=== PATIENT | male | born 1955 | race Hispanic/Latino ===

== ENCOUNTER 2020-10-15 21:09 | Observation (INO) | payer BC ==
[2020-10-15] MEDS ORDERED: Aspirin Chewable 81 MG TAB ONE (22:25)
[2020-10-16] MEDS ORDERED: Senokot S 8.6-50 MG TAB PO PRN (01:55)
[2020-10-16] MEDS ORDERED: Acetaminophen 325 MG TAB PO PRN (01:55)
[2020-10-16] MEDS ORDERED: Sodium Chloride 0.9% 1,000 ML IV SCH (02:00)
[2020-10-16 02:49] VITALS: BMI 28.1
[2020-10-16 04:59] LABS: #Basophils 0.1 thou/uL (0.0-0.2); #Eosinphils 0.2 thou/uL (0.0-0.7); #Lymphocytes 1.9 thou/uL (1.20-3.40); #Monocytes 0.6 thou/uL (0.11-0.59); #Neutrophils 2.7 thou/uL (1.40-6.50); %Monocytes 10.2 % (0.0-10.0); %Neutrophils 49.8 % (42.0-75.0); Hemoglobin 12.7 g/dL (14.0-18.0); Mean Corpuscular HGB CONC 33.4 g/dL (32.0-36.0); Mean Corpuscular Hemoglobin 29.4 pg (27.0-31.0); Mean Corpuscular Volume 88.1 fL (78.0-98.0); Platelet Count 159 thou/uL (130-400); RBC Distribution Width 12.1 % (11.5-14.5); Red Blood Cell (RBC) Count 4.33 mill/uL (4.70-6.10); White Blood Cell (WBC) Count 5.4 thou/uL (4.8-10.8)
[2020-10-16 05:12] LABS: #Eosinphils 0.1 thou/uL (0.0-0.7); #Lymphocytes 2.2 thou/uL (1.20-3.40); #Monocytes 0.7 thou/uL (0.11-0.59); #Neutrophils 3.1 thou/uL (1.40-6.50); %Basophils 0.2 % (0.0-1.0); %Eosinophils 1.8 % (0.0-10.0); %Lymphocytes 36.1 % (21.0-51.0); %Monocytes 11.1 % (0.0-10.0); %Neutrophils 50.8 % (42.0-75.0); Hemoglobin 13.6 g/dL (14.0-18.0); Mean Corpuscular HGB CONC 34.6 g/dL (32.0-36.0); Mean Corpuscular Hemoglobin 30.4 pg (27.0-31.0); Mean Corpuscular Volume 87.7 fL (78.0-98.0); Mean Platelet Volume 8.1 fL (7.4-10.4); Platelet Count 174 thou/uL (130-400); RBC Distribution Width 12.3 % (11.5-14.5); Red Blood Cell (RBC) Count 4.47 mill/uL (4.70-6.10)
[2020-10-16 05:25] LABS: Anion Gap 13 mmol/L (10-20); BUN (Urea Nitrogen) 10 mg/dL (8.4-25.7); Calc. Creatinine Clearance 95 mL/min (70-130); Calcium 8.6 mg/dL (7.8-10.44); Carbon Dioxide 23 mmol/L (23-31); Chloride 106 mmol/L (98-107); Glucose 100 mg/dL (80-115); Magnesium 2.1 mg/dL (1.6-2.6); Potassium 3.8 mmol/L (3.5-5.1); Sodium 138 mmol/L (136-145)
[2020-10-16 08:07] LABS: ALT (SGPT) 78 U/L (8-55); AST (SGOT) 53 U/L (5-34); Albumin 3.9 g/dL (3.4-4.8); Alkaline Phosphatase 67 U/L (40-110); Anion Gap 15 mmol/L (10-20); BUN (Urea Nitrogen) 12 mg/dL (8.4-25.7); Bilirubin, Total 0.4 mg/dL (0.2-1.2); Calc. Creatinine Clearance 91 mL/min (70-130); Calcium 8.7 mg/dL (7.8-10.44); Carbon Dioxide 19 mmol/L (23-31); Chloride 106 mmol/L (98-107); Globulin 3.1 g/dL (2.4-3.5); Glucose 116 mg/dL (80-115); Potassium 3.4 mmol/L (3.5-5.1); Sodium 137 mmol/L (136-145)
[2020-10-16 08:41] LABS: SARS-CoV-2 PCR by NAA Not Detected (NotDetected)
[2020-10-16] MEDS: Famotidine 20 MG TAB PO SCH ×2 (08:44→21:18)
[2020-10-16] MEDS: Amlodipine 10 MG TAB PO SCH (08:44)
[2020-10-16] MEDS: Rosuvastatin 10 MG TAB PO SCH (08:44)
[2020-10-16] MEDS: Potassium Chloride 20 MEQ TAB PO SCH (08:45)
[2020-10-16] MEDS: Losartan 25 MG TAB PO SCH (08:45)
[2020-10-16] MEDS: Enoxaparin Sodium 40 MG/0.4 ML SYRINGE SC SCH (08:53)
[2020-10-16 18:45] LABS: Troponin I Less than 0.010 ng/mL (< 0.028)
[2020-10-16 21:58] LABS: Troponin I Less than 0.010 ng/mL (< 0.028)
[2020-10-17] MEDS: Enoxaparin Sodium 40 MG/0.4 ML SYRINGE SC SCH (09:33)
[2020-10-17] MEDS: Potassium Chloride 20 MEQ TAB PO SCH (09:34)
[2020-10-17] MEDS: Losartan 25 MG TAB PO SCH (09:34)
[2020-10-17] MEDS: Rosuvastatin 10 MG TAB PO SCH (09:34)
[2020-10-17] MEDS: Famotidine 20 MG TAB PO SCH (09:34)
[2020-10-17] MEDS: Amlodipine 10 MG TAB PO SCH (09:35)
[2020-10-17 11:53] VITALS: BP 116/70; TEMP 98.3
== END 2020-10-17 16:05 | disposition home or self-care (01) ==
LOC: ERS 21:09 → 2NO 10-16 00:38 → INTOOBSV 10-16 00:38
PROVIDERS: ADMIT Student in an Organized Health Care Education/Training Program; ATTEND Internal Medicine
DX: R55 Syncope and collapse (principal); I10 Essential (primary) hypertension; E78.5 Hyperlipidemia, unspecified; E87.6 Hypokalemia; F17.210 Nicotine dependence, cigarettes, uncomplicated; I45.10 Unspecified right bundle-branch block; S00.03XA Contusion of scalp, initial encounter; Z79.899 Other long term (current) drug therapy; Z20.822 Contact with and (suspected) exposure to COVID-19; W19.XXXA Unspecified fall, initial encounter
CPT/HCPCS: 36415; 70450; 71045; 80048; 80053; 83735; 83930; 84443; 84484; 85025; 87635; 93005; 93306; 93880; J1650; U0003; U0005